=== PATIENT | female | born 1990 | race Caucasian/White ===

== ENCOUNTER 2020-06-28 18:24 | Emergency (ER) | payer SELFPAY ==
[~2020-06-28] VITALS: Ht 162.6 cm; Wt 81.0 kg
[2020-06-28] MEDS ORDERED: HYDROcodone/APAP 5/325MG 1 TAB TABLET PO ONE (19:15)
[2020-06-28] MEDS ORDERED: AMOXICILLIN/K CLAV 875/125MG TABLET. PO ONE (19:15)
[2020-06-28] MEDS ORDERED: DEXAMETHASONE 4 MG TABLET PO ONE (19:15)
[2020-06-28] MEDS ORDERED: CHLO15MO2 PO (19:21)
[2020-06-28] MEDS ORDERED: HYDR-3165 PO (19:21)
[2020-06-28] MEDS ORDERED: AMOX1TAB61 PO (19:21)
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
[2020-06-28 19:40] VITALS: BP 117/78
== END 2020-06-28 19:40 | disposition home or self-care (01) ==
LOC: EDBD 18:24 → ER 18:24
DX: K02.9 Dental caries, unspecified (principal); F10.20 Alcohol dependence, uncomplicated; Z87.442 Personal history of urinary calculi; Y90.9 Presence of alcohol in blood, level not specified
CPT/HCPCS: 99284; J8540